=== PATIENT | male | born 2000 | race Hispanic/Latino ===

== ENCOUNTER → 2023-11-17 | Day surgery (SDC) | payer BC ==
[2023-11-06 14:46] LABS: BASOPHILS # (AUTO) 0.1 (0.0-0.1); BASOPHILS % 0.9 % (0.0-1.0); EOSINOPHILS # (AUTO) 0.1 (0.0-0.4); EOSINOPHILS % 2.1 % (0.0-6.0); HEMOGLOBIN 15.8 g/dL (14.0-18.0); LYMPHOCYTES # (AUTO) 3.3 (1.0-3.2); LYMPHOCYTES % 48.5 % (18.0-39.1); MEAN CORPUSCULAR HEMOGLOBIN 31.6 pg (28-32); MEAN CORPUSCULAR HGB CONC 35.1 g/dL (31-35); MONOCYTES # (AUTO) 0.5 (0.2-0.8); MONOCYTES % 7.6 % (4.4-11.3); NEUTROPHILS # (AUTO) 2.7 (2.1-6.9); NEUTROPHILS % 40.8 % (38.7-80.0); PLATELET COUNT 231 x10e3/uL (140-360); RED CELL DISTRIBUTION WIDTH 11.8 % (11.7-14.4)
[2023-11-06 15:04] LABS: ANION GAP 14.3 mmol/L (8-16); CALCIUM 9.8 mg/dL (8.4-10.2); CREATININE, SERUM 0.83 mg/dL (0.72-1.25); POTASSIUM 4.3 mmol/L (3.5-5.1)
[~2023-11-17] MED LIST: ACETAMINOPHEN 1000 MG/100 ML 100 ML IV ONE; BUPIVACAINE HCL 0.5% INJ 30 ML VIAL INJ ONE; DEXAMETHASONE SOD PHOS INJ 4 MG/ML SDV ONE; FAMOTIDINE 20 MG/2 ML VIAL IV ONE; FENTANYL CITRATE/PF 100MCG/2 ML INJ ONE; HYDROMORPHONE 1MG/1ML INJ ONE; LIDOCAINE 1% W/EPINEPHRINE 20 ML VIAL ONE; LIDOCAINE HCL 2% LOCAL INJ 5 ML SDV VIAL INJ ONE; MIDAZOLAM HCL 2 MG/2 ML VIAL ONE; NICARDIPINE HCL SOLN 0 ML ONE; ONDANSETRON HCL INJ 2MG/ML 2ML 2 MG/ML VIAL ONE; PROPOFOL IV EMULSION 10 MG/ML 20 ML VIAL ONE; SEVOFLURANE INHAL SOLN 250 ML PEN BTL ONE; [UNRECOGNIZED DRUG - OTHER] PO
[2023-11-17] MEDS: LACTATED RINGER'S 1,000 ML ONE (06:35)
[2023-11-17] MEDS: CEFAZOLIN SODIUM 2 GM ONE (06:40)
[2023-11-17] MEDS: MEPERIDINE HCL INJ 25 MG/ML VIAL ONE (09:20)
[2023-11-17] MEDS: KETOROLAC TROMETHAMINE 30 MG/ML VIAL ONE (09:25)
[2023-11-17] MEDS: HYDROCODONE/APAP 7.5MG-325MG 1 EA TAB ONE (09:40)
[2023-11-17] MEDS: FENTANYL CITRATE/PF 100MCG/2 ML INJ ONE (09:40)
[2023-11-17 10:20] VITALS: BP 144/95; PULSE 76; RESP 16; O2SAT 99
== END | disposition home or self-care (01) ==
LOC: OR 05:29
PROVIDERS: ATTEND Orthopaedic Surgery
DX: S83.282A Other tear of lateral meniscus, current injury, left knee, initial encounter (principal); Q68.6 Discoid meniscus; M67.52 Plica syndrome, left knee; Z01.812 Encounter for preprocedural laboratory examination
CPT/HCPCS: 29882; 36415; 80048; 85025; J0131; J1885; J2175; J2250; J3010; J7121; J1100; J1170; J2001; J2405